=== PATIENT | female | born 1960 | race Caucasian/White ===

== ENCOUNTER 2016-11-06 13:27 | Outpatient (RCR) | payer OTHER ==
[~2016-11-06 13:27] MED LIST: COPPERAS1 GRA PO; COREG 25MG25 MG/TAB PO; HYGROTON25 MG; HYGROTON25 MG PO; LANTUS100 U/ML SC; NOVOLOG 100U100 U/M1 SC; PROBIOTIC FORMU1 CAP PO; VITAMIN B121000 MC2 PO
== END 2016-11-22 | disposition home or self-care (01) ==
LOC: WSOH
DX: M25.571 Pain in right ankle and joints of right foot (principal)
CPT/HCPCS: 24091; A6549

== ENCOUNTER 2016-12-14 14:44 | Outpatient (RCR) | payer OTHER | END 2017-02-28 | LOC: WSOH | DX: S96.911D Strain of unspecified muscle and tendon at ankle and foot level, right foot, subsequent encounter (principal); X50.0XXD Overexertion from strenuous movement or load, subsequent encounter; Y99.0 Civilian activity done for income or pay; Z79.4 Long term (current) use of insulin ==

== ENCOUNTER → 2018-06-28 | Outpatient (CLI) | payer BC | LOC: MC.RAD 14:16 | DX: Z12.31 Encounter for screening mammogram for malignant neoplasm of breast (principal) ==

== ENCOUNTER 2021-12-30 15:45 | Outpatient (RCR) | payer BC | END 2022-01-05 | disposition home or self-care (01) | LOC: WSPT | DX: Z96.651 Presence of right artificial knee joint (principal) ==

== ENCOUNTER 2022-02-03 13:30 | Outpatient (RCR) | payer BC | END 2022-02-05 | disposition home or self-care (01) | LOC: WSPT | DX: M25.561 Pain in right knee (principal); Z96.651 Presence of right artificial knee joint ==